=== PATIENT | female | born 1960 | race Caucasian/White ===

== ENCOUNTER 2017-10-01 15:53 | Emergency (ER) | payer OTHER ==
[~2017-10-01] VITALS: Ht 162.6 cm; Wt 60.0 kg
[~2017-10-01 15:53] MED LIST: IBUP800T23 PO
[2017-10-01] MEDS ORDERED: SODIUM CHLOR 0.9% 1000 ML INJ 1,000 ML IV SCH (16:05)
[2017-10-01 16:06] VITALS: BP 91/50; PULSE 52; RESP 14; O2SAT 95
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
[2017-10-01] MEDS ORDERED: ONDANSETRON HCL 4 MG/2 ML VIAL IV PUSH ONE (16:15)
[2017-10-01] MEDS ORDERED: SODIUM CHLORIDE 0.9% FLUSH 10 ML FLUSH IV FLUSH PRN (16:15)
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
[2017-10-01 16:44] VITALS: BP 99/55; PULSE 98; RESP 17; O2SAT 98
[2017-10-01 17:17] LABS: AUTOMATED NEUTROPHIL # 3.9 TH/MM3 (1.8-7.7); BASOPHIL # 0.1 TH/MM3 (0-0.2); EOSINOPHIL # 0.1 TH/MM3 (0-0.4); EOSINOPHIL % 1.3 % (0.0-4.0); HEMOGLOBIN 14.4 GM/DL (11.6-15.3); LYMPH % 30.3 % (9.0-44.0); MEAN CELL VOLUME 88.5 FL (80.0-100.0); MEAN CORPUSCULAR HEMOGLOBIN 30.2 PG (27.0-34.0); MEAN CORPUSCULAR HGB CONC 34.2 % (32.0-36.0); MEAN PLATELET VOLUME 9.7 FL (7.0-11.0); MONO % 9.1 % (0.0-8.0); MONOCYTE # 0.6 TH/MM3 (0-0.9); NEUT % 58.3 % (16.0-70.0); PLATELET COUNT 159 TH/MM3 (150-450); RED BLOOD COUNT 4.75 MIL/MM3 (4.00-5.30); RED CELL DISTRIBUTION WIDTH 13.1 % (11.6-17.2); WHITE BLOOD COUNT 6.6 TH/MM3 (4.0-11.0)
[2017-10-01 17:54] LABS: ACETAMINOPHEN LESS THAN 2.0 MCG/ML (10.0-30.0); ALKALINE PHOSPHATASE 70 U/L (45-117); ALT (GPT) 17 U/L (10-53); TOTAL BILIRUBIN ADULT 0.5 MG/DL (0.2-1.0); TOTAL PROTEIN 6.5 GM/DL (6.4-8.2)
[2017-10-01 18:02] LABS: AST (GOT) 14 U/L (15-37); BICARBONATE 20.8 MEQ/L (21.0-32.0); BLOOD UREA NITROGEN 10 MG/DL (7-18); CALCIUM 7.9 MG/DL (8.5-10.1); CHLORIDE 109 MEQ/L (98-107); CREATININE 0.77 MG/DL (0.50-1.00); GLOMERULAR FILTRATION RATE 77 ML/MIN (>89); GLUCOSE,RANDOM 90 MG/DL (74-106); SODIUM (NA) 141 MEQ/L (136-145)
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
[2017-10-01] MEDS ORDERED: IOHEXOL 350 MG/ML 10 ML VIAL (for RAD DIAG) IVCONTRAST ONE (19:35)
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
[2017-10-01] MEDS ORDERED: CALCIUM CARBONATE 500 MG CHEWABLE TAB CHEW ONE (20:00)
[2017-10-01] MEDS ORDERED: SODIUM CHLOR 0.9% 1000 ML INJ 1,000 ML IV ONE (20:00)
[2017-10-01] MEDS ORDERED: POTASSIUM CHLORIDE 20 MEQ CONTROLLED RELEASE TAB PO ONE (20:00)
[2017-10-01 20:04] LABS: BACTERIA, URINE MANY /hpf; BILIRUBIN, URINE NEG (NEG); BLOOD, URINE NEG (NEG); GLUCOSE,URINE NEG (NEG); HYALINE CAST, URINE 6 /lpf (RARE); KETONE, URINE NEG (NEG); MUCUS URINE MANY /lpf (OCC); NITRITE,URINE POS (NEG); PH, URINE 5.5 (5.0-8.5); SQUAMOUS EPITHELIAL CELL URINE 7 /hpf (0-5); URINE COLOR YELLOW (YELLW/STRAW); URINE LEUKOCYTE ESTERASE MOD (NEG)
[2017-10-01] MEDS ORDERED: NICOTINE 14 MG/24 HR PATCH T-DERMAL ONE (20:30)
[2017-10-01 21:00] VITALS: BP 112/68; PULSE 82; RESP 18; O2SAT 96
[2017-10-01] MEDS ORDERED: cefTRIAXone INJ 1,000 MG in SODIUM CHLORIDE 0.9% INJ 100 ML IV ONE (21:15)
[2017-10-02 00:03] VITALS: BP 133/71; PULSE 85; RESP 20; O2SAT 97
--- NOTE | 2017-10-02 13:32 | EKG ---
Date Performed: 10/01/2017 Time Performed: 16:11:17 PTAGE: 57 years EKG: SINUS BRADYCARDIA DIFFUSE NONSPECIFIC ST-T WAVE CHANGES ABNORMAL ECG Compared to PREVIOUS TRACING , cannot exclude possible ischemia. PREVIOUS TRACIN06/12/2010 12.18 DOCTOR: Sylvester Sandoval Interpretating Date/Time 10/02/2017 13:30:17
--- NOTE | 2017-10-02 13:32 | EKG ---
Date Performed: 10/01/2017 Time Performed: 20:16:57 PTAGE: 57 years EKG: SINUS BRADYCARDIA MODERATE T-WAVE ABNORMALITY, CONSIDER ANTEROLATERAL ISCHEMIA ABNORMAL ECG Compared to PREVIOUS TRACING , sligt progression of the T-wave abnormality indicative of likely ische jame, clinical correlation is needed. PREVIOUS TRACIN10/01/2017 16.11 DOCTOR: Sylvester Sandoval Interpretating Date/Time 10/02/2017 13:31:45
== END 2017-10-02 05:15 ==
LOC: NEPE 15:53 → NEPJ 10-02 05:15
DX: R45.851 Suicidal ideations (principal); T43.212A Poisoning by selective serotonin and norepinephrine reuptake inhibitors, intentional self-harm, initial encounter; N39.0 Urinary tract infection, site not specified; F10.129 Alcohol abuse with intoxication, unspecified; F31.9 Bipolar disorder, unspecified; F17.210 Nicotine dependence, cigarettes, uncomplicated; F14.90 Cocaine use, unspecified, uncomplicated; R00.1 Bradycardia, unspecified; Y90.2 Blood alcohol level of 40-59 mg/100 ml
CPT/HCPCS: 70450; 71045; 72125; 74177; 80053; 80307; 81001; 84443; 85025; 85610; 85730; 87077; 87086; 87186; 93005; 96361; 96365; 99285; J0696; J2405; J7030; Q9967

== ENCOUNTER 2017-12-08 11:17 | Emergency (ER) | payer SELFPAY ==
[~2017-12-08] VITALS: Ht 162.6 cm; Wt 63.0 kg
[2017-12-08 11:19] VITALS: BP 122/62; PULSE 72; RESP 16; TEMP 97.5; O2SAT 95
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
--- NOTE | 2017-12-08 12:14 | RADRPT ---
EXAM DATE: 12/08/2017 12:11 PM EDT AGE/SEX: 57 years / Female INDICATIONS: Right shoulder pain CLINICAL DATA: This is the patient's initial encounter. Patient reports that signs and symptoms have been present for 1 day and indicates a pain score of 9/10. MEDICAL/SURGICAL HISTORY: . . COMPARISON: No prior [facility] exams available for comparison. FINDINGS: Bony structures are intact and in normal alignment. Joints are intact without dislocation or signifi cant arthropathy. Osseous density is normal. Punctate calcification near the greater tuberosity may represent mild tendinopathy. No radiopaque foreign bodies seen. CONCLUSION: 1. Mild calcific tendinopathy. 2. No acute fracture or significant degenerative changes. Electronically signed by: Reji Leggett MD 12/08/2017 12:12 PM EDT
--- NOTE | 2017-12-08 12:14 | RADRPT ---
EXAM DATE: 12/08/2017 12:09 PM EDT AGE/SEX: 57 years / Female INDICATIONS: Left upper rib pain CLINICAL DATA: This is the patient's initial encounter. Patient reports that signs and symptoms have been present for 1 day and indicates a pain score of 7/10. MEDICAL/SURGICAL HISTORY: . . COMPARISON: No prior [facility] exams available for comparison. FINDINGS: 6 views of the chest and left ribs demonstrate no rib fracture or acute rib abnormality. No pneumotho rax is identified. The visualized surrounding structures demonstrate no acute finding. There are dege nerative changes of the thoracic spine. CONCLUSION: No rib fracture or acute abnormality is identified. Electronically signed by: Albert Navarro MD 12/08/2017 12:13 PM EDT
== END 2017-12-08 12:46 | disposition home or self-care (01) ==
LOC: PHEFT 11:17
DX: S20.219A Contusion of unspecified front wall of thorax, initial encounter (principal); S40.021A Contusion of right upper arm, initial encounter; Y04.8XXA Assault by other bodily force, initial encounter; F31.9 Bipolar disorder, unspecified; I10 Essential (primary) hypertension; M79.7 Fibromyalgia; F17.200 Nicotine dependence, unspecified, uncomplicated; F14.90 Cocaine use, unspecified, uncomplicated
CPT/HCPCS: 71101; 73030; 99284